=== PATIENT | male | born 1960 | race Caucasian/White ===

== ENCOUNTER 2021-10-04 18:23 | Emergency (ER) | payer SELFPAY ==
[2021-10-04] MEDS ORDERED: methylPREDNISolone Sod Succ/PF 125 MG/2 ML VIAL ONE (18:44)
[2021-10-04 19:05] LABS: #Basophils 0.2 thou/uL (0.0-0.2); #Eosinphils 1.3 thou/uL (0.0-0.7); #Lymphocytes 4.7 thou/uL (1.20-3.40); #Monocytes 1.1 thou/uL (0.11-0.59); #Neutrophils 8.9 thou/uL (1.40-6.50); %Basophils 1.2 % (0.0-1.0); %Eosinophils 7.9 % (0.0-10.0); %Lymphocytes 28.8 % (21.0-51.0); %Monocytes 6.8 % (0.0-10.0); %Neutrophils 55.3 % (42.0-75.0); Hemoglobin 18.7 g/dL (14.0-18.0); Mean Corpuscular HGB CONC 34.6 g/dL (32.0-36.0); Mean Corpuscular Hemoglobin 30.2 pg (27.0-31.0); Mean Corpuscular Volume 87.2 fL (78.0-98.0); Mean Platelet Volume 8.4 fL (7.4-10.4); Platelet Count 342 thou/uL (130-400); RBC Distribution Width 12.3 % (11.5-14.5); White Blood Cell (WBC) Count 16.1 thou/uL (4.8-10.8)
[2021-10-04 19:27] LABS: ALT (SGPT) 33 U/L (8-55); AST (SGOT) 26 U/L (5-34); Albumin 4.7 g/dL (3.4-4.8); Alkaline Phosphatase 72 U/L (40-110); Anion Gap 15 mmol/L (10-20); BUN (Urea Nitrogen) 14 mg/dL (8.4-25.7); Bilirubin, Total 0.4 mg/dL (0.2-1.2); Calc. Creatinine Clearance 0 mL/min (70-130); Calcium 10.7 mg/dL (7.8-10.44); Carbon Dioxide 27 mmol/L (23-31); Chloride 102 mmol/L (98-107); Glucose 148 mg/dL (80-115); Magnesium 2.2 mg/dL (1.6-2.6); Potassium 3.8 mmol/L (3.5-5.1); Protein, Total 8.7 g/dL (5.8-8.1); Sodium 140 mmol/L (136-145)
[2021-10-04 20:08] LABS: Actual Bicarbonate (HCO3v) 23 mEq/L (22-28); Analyzer IN Cardio ER; Base Excess -0.4 mEq/L (-2.0 to +3.0); Calcium, Ionized (venous) 1.11 mmol/L (1.16-1.32); Chloride (VBG) 103 mmol/L (98-106); Hemoglobin (Hb) 17.7 g/dL (13.1-17.2); Potassium (VBG) 3.91 mmol/L (3.70-5.30); Sodium 139.7 mmol/L (133-146); pH (venous) 7.45 (7.32-7.43)
[2021-10-04 21:29] LABS: SARS-CoV-2 NAA Rapid Test Not Detected (NotDetected)
== END 2021-10-05 01:14 | disposition home or self-care (01) ==
LOC: ERS 18:23
DX: J45.901 Unspecified asthma with (acute) exacerbation (principal); Z20.822 Contact with and (suspected) exposure to COVID-19; I10 Essential (primary) hypertension
CPT/HCPCS: 0240U; 36415; 71045; 80053; 82805; 83605; 83735; 83880; 84484; 85025; 93005; 94640; 96374; J2930; J7620

== ENCOUNTER 2021-11-10 09:27 | Inpatient (IN) | payer SELFPAY ==
[2021-11-10] MEDS ORDERED: methylPREDNISolone Sod Succ/PF 125 MG/2 ML VIAL ONE (09:43)
[2021-11-10] MEDS ORDERED: Magnesium 2 GM/50 ML BAG (IN WATER) ONE (09:43)
[2021-11-10 10:06] LABS: #Basophils 0.2 thou/uL (0.0-0.2); #Eosinphils 1.1 thou/uL (0.0-0.7); #Monocytes 0.7 thou/uL (0.11-0.59); #Neutrophils 7.4 thou/uL (1.40-6.50); %Basophils 1.5 % (0.0-1.0); %Eosinophils 9.8 % (0.0-10.0); %Lymphocytes 17.7 % (21.0-51.0); %Monocytes 5.9 % (0.0-10.0); %Neutrophils 65.2 % (42.0-75.0); Hemoglobin 17.3 g/dL (14.0-18.0); Mean Corpuscular HGB CONC 34.1 g/dL (32.0-36.0); Mean Corpuscular Hemoglobin 30.3 pg (27.0-31.0); Mean Corpuscular Volume 88.8 fL (78.0-98.0); Mean Platelet Volume 8.1 fL (7.4-10.4); Platelet Count 290 thou/uL (130-400); RBC Distribution Width 12.6 % (11.5-14.5); Red Blood Cell (RBC) Count 5.72 mill/uL (4.70-6.10); White Blood Cell (WBC) Count 11.3 thou/uL (4.8-10.8)
[2021-11-10] MEDS ORDERED: cefTRIAXone\\ROCEPHIN 2 GM VIAL ONE (10:08)
[2021-11-10] MEDS ORDERED: Azithromycin 500 MG VIAL ONE (10:08)
[2021-11-10] MEDS ORDERED: cefTRIAXone\\ROCEPHIN 1 GM VIAL ONE (10:08)
[2021-11-10 10:19] LABS: PTT 28.5 sec (22.9-36.1); Prothrombin Time 13.4 sec (12.0-14.7)
[2021-11-10 10:26] LABS: ALT (SGPT) 27 U/L (8-55); AST (SGOT) 29 U/L (5-34); Albumin 4.6 g/dL (3.4-4.8); Alkaline Phosphatase 67 U/L (40-110); Anion Gap 15 mmol/L (10-20); BUN (Urea Nitrogen) 15 mg/dL (8.4-25.7); Bilirubin, Total 0.6 mg/dL (0.2-1.2); Calc. Creatinine Clearance 0 mL/min (70-130); Calcium 9.7 mg/dL (7.8-10.44); Carbon Dioxide 22 mmol/L (23-31); Chloride 105 mmol/L (98-107); Globulin 3.2 g/dL (2.4-3.5); Glucose 215 mg/dL (80-115); Magnesium 1.9 mg/dL (1.6-2.6); Protein, Total 7.8 g/dL (5.8-8.1); Sodium 138 mmol/L (136-145)
[2021-11-10 10:27] LABS: Actual Bicarbonate (HCO3a) 21.5 mEq/L (22-28); Analyzer IN Cardio ER; Base Excess (BEa) -2.2 mEq/L (-2.0 to +3.0); CO2 Tension 34.2 mmHg (35.0-45.0); Calcium, Ionized (arterial) 1.19 mmol/L (1.12-1.30); Carboxyhemoglobin (COHb) 1.2 gm% (0.0-3.0); Hemoglobin (Hb) 16.6 g/dL (14.0-18.0); O2 Tension (PaO2), arterial 66.2 mmHg (> 80.0); pH, Arterial 7.42 (7.35-7.45)
[2021-11-10 10:30] LABS: Puncture Site RRA
[2021-11-10] MEDS ORDERED: Albuterol Sulfate 1.25 MG/3 ML NEB ONE (11:06)
[2021-11-10] MEDS ORDERED: Acetaminophen 325 MG TAB PO PRN (12:10)
[2021-11-10] MEDS ORDERED: Ondansetron ODT 4 MG TAB PO PRN (12:10)
[2021-11-10] MEDS ORDERED: Dextrose 50% Abboject 50 ML SYRINGE SLOW IVP PRN (12:13)
[2021-11-10] MEDS ORDERED: Dextrose 5% in Water 1,000 ML IV PRN (12:13)
[2021-11-10] MEDS ORDERED: Albuterol 200 PUFF (6.7GM INHALER) INH PRN (12:14)
[2021-11-10 13:18] LABS: SARS-CoV-2 PCR by NAA Not Detected (NotDetected)
[2021-11-10 17:46] VITALS: BMI 34.7
[2021-11-10] MEDS: methylPREDNISolone Sod Succ/PF 125 MG/2 ML VIAL IVP SCH ×2 (17:49→23:23)
[2021-11-10] MEDS: Famotidine 20 MG TAB PO SCH (20:07)
[2021-11-10] MEDS ORDERED: hydrALAZINE 20 MG/ML VIAL SLOW IVP PRN (20:48)
[2021-11-10 20:58] LABS: Lactic Acid 4.5 mmol/L (0.5-2.2)
[2021-11-10] MEDS ORDERED: Sodium Chloride 0.9% 500 ML IV SCH (21:15)
[2021-11-11] MEDS: HumaLOG 300 UNITS/3 ML VIAL SC PRN ×3 (04:12→16:59)
[2021-11-11] MEDS: methylPREDNISolone Sod Succ/PF 125 MG/2 ML VIAL IVP SCH ×4 (05:17→23:47)
[2021-11-11 08:04] LABS: #Lymphocytes 0.8 thou/uL (1.20-3.40); #Monocytes 0.2 thou/uL (0.11-0.59); #Neutrophils 15.8 thou/uL (1.40-6.50); %Basophils 0.2 % (0.0-1.0); %Eosinophils 0.1 % (0.0-10.0); %Lymphocytes 4.9 % (21.0-51.0); %Monocytes 1.2 % (0.0-10.0); %Neutrophils 93.7 % (42.0-75.0); Hemoglobin 15.2 g/dL (14.0-18.0); Mean Corpuscular HGB CONC 32.1 g/dL (32.0-36.0); Mean Corpuscular Hemoglobin 28.6 pg (27.0-31.0); Mean Corpuscular Volume 89.2 fL (78.0-98.0); Mean Platelet Volume 8.4 fL (7.4-10.4); Platelet Count 290 thou/uL (130-400); RBC Distribution Width 12.5 % (11.5-14.5); Red Blood Cell (RBC) Count 5.31 mill/uL (4.70-6.10); White Blood Cell (WBC) Count 16.9 thou/uL (4.8-10.8)
[2021-11-11 08:16] LABS: Anion Gap 14 mmol/L (10-20); BUN (Urea Nitrogen) 14 mg/dL (8.4-25.7); Calc. Creatinine Clearance 110 mL/min (70-130); Calcium 9.3 mg/dL (7.8-10.44); Carbon Dioxide 20 mmol/L (23-31); Chloride 107 mmol/L (98-107); Glucose 196 mg/dL (80-115); Sodium 137 mmol/L (136-145)
[2021-11-11] MEDS: guaiFENesin 200 MG TAB PO PRN ×2 (08:36→20:25)
[2021-11-11] MEDS: Famotidine 20 MG TAB PO SCH ×2 (08:36→20:20)
[2021-11-12] MEDS: methylPREDNISolone Sod Succ/PF 125 MG/2 ML VIAL IVP SCH ×2 (05:02→12:47)
[2021-11-12] MEDS: HumaLOG 300 UNITS/3 ML VIAL SC PRN ×3 (05:43→16:53)
[2021-11-12] MEDS: Famotidine 20 MG TAB PO SCH ×2 (08:09→19:55)
[2021-11-13] MEDS: HumaLOG 300 UNITS/3 ML VIAL SC PRN ×2 (04:21→12:46)
[2021-11-13] MEDS ORDERED: FLU VACC QS2021-22(6MOS UP)/PF 60 MCG/0.5 ML SYRINGE IM ONE (09:00)
[2021-11-13] MEDS ORDERED: methylPREDNISolone Sod Succ 40 MG VIAL IVP SCH (09:00)
[2021-11-13] MEDS: Famotidine 20 MG TAB PO SCH (09:48)
[2021-11-13 11:12] VITALS: BP 167/87
[2021-11-13 15:16] VITALS: TEMP 98.1
== END 2021-11-13 14:35 | disposition home or self-care (01) | DRG 189 ==
LOC: ERS 09:27 → T4-B 10:51 → OBSVTOIN 11-11 13:18
PROVIDERS: ADMIT Internal Medicine; ATTEND Internal Medicine
DX: J96.01 Acute respiratory failure with hypoxia (principal); J45.901 Unspecified asthma with (acute) exacerbation; E87.2 Acidosis; I10 Essential (primary) hypertension; E11.65 Type 2 diabetes mellitus with hyperglycemia; Z20.822 Contact with and (suspected) exposure to COVID-19; Z79.899 Other long term (current) drug therapy; Z90.49 Acquired absence of other specified parts of digestive tract
CPT/HCPCS: 36415; 36416; 36600; 71045; 80048; 80053; 82805; 83605; 83735; 83880; 84484; 85025; 85610; 85730; 87040; 90471; 90686; 90732; 93005; 94640; 94644; 94760; 96376; G0008; G0009; G0378; J0456; J0696; J1815; J1956; J2920; J2930; J3475; J7030; J7620; U0003; U0005

== ENCOUNTER 2022-05-10 10:33 | Emergency (ER) | payer OTHER, SELFPAY ==
[2022-05-10] MEDS ORDERED: methylPREDNISolone Sod Succ/PF 125 MG/2 ML VIAL ONE (10:59)
[2022-05-10 11:12] LABS: #Basophils 0.1 thou/uL (0.0-0.2); #Eosinphils 1.6 thou/uL (0.0-0.7); #Lymphocytes 2.7 thou/uL (1.20-3.40); #Monocytes 1.1 thou/uL (0.11-0.59); #Neutrophils 8.7 thou/uL (1.40-6.50); %Basophils 0.7 % (0.0-1.0); %Eosinophils 11.5 % (0.0-10.0); %Lymphocytes 19.1 % (21.0-51.0); %Neutrophils 60.7 % (42.0-75.0); Hemoglobin 16.9 g/dL (14.0-18.0); Mean Corpuscular HGB CONC 32.9 g/dL (32.0-36.0); Mean Corpuscular Hemoglobin 29.7 pg (27.0-31.0); Mean Corpuscular Volume 90.2 fL (78.0-98.0); Mean Platelet Volume 8.5 fL (7.4-10.4); Platelet Count 347 thou/uL (130-400); RBC Distribution Width 12.7 % (11.5-14.5); Red Blood Cell (RBC) Count 5.69 mill/uL (4.70-6.10); White Blood Cell (WBC) Count 14.3 thou/uL (4.8-10.8)
[2022-05-10 11:27] LABS: ALT (SGPT) 22 U/L (8-55); AST (SGOT) 20 U/L (5-34); Albumin 4.8 g/dL (3.4-4.8); Alkaline Phosphatase 66 U/L (40-110); Anion Gap 16 mmol/L (10-20); BUN (Urea Nitrogen) 13 mg/dL (8.4-25.7); Bilirubin, Total 0.7 mg/dL (0.2-1.2); Calc. Creatinine Clearance 0 mL/min (70-130); Calcium 9.9 mg/dL (7.8-10.44); Carbon Dioxide 26 mmol/L (23-31); Chloride 103 mmol/L (98-107); Estimated GFR 65; Globulin 3.1 g/dL (2.4-3.5); Glucose 197 mg/dL (80-115); Potassium 4.2 mmol/L (3.5-5.1); Protein, Total 7.9 g/dL (5.8-8.1); Sodium 141 mmol/L (136-145)
== END 2022-05-10 14:57 | disposition home or self-care (01) ==
LOC: ERS 10:33
DX: J45.901 Unspecified asthma with (acute) exacerbation (principal); I10 Essential (primary) hypertension; E11.9 Type 2 diabetes mellitus without complications; E78.5 Hyperlipidemia, unspecified; E78.00 Pure hypercholesterolemia, unspecified; Z79.82 Long term (current) use of aspirin; Z79.84 Long term (current) use of oral hypoglycemic drugs; Z79.899 Other long term (current) drug therapy
CPT/HCPCS: 71045; 80053; 83605; 84484; 85025; 87040; 93005; 94640; 94760; 96361; 96374; J2930; J7620

== ENCOUNTER 2022-05-19 09:07 | Emergency (ER) | payer SELFPAY ==
[2022-05-19 09:35] LABS: #Basophils 0.2 thou/uL (0.0-0.2); #Eosinphils 1.9 thou/uL (0.0-0.7); #Lymphocytes 3.3 thou/uL (1.20-3.40); #Monocytes 1.5 thou/uL (0.11-0.59); #Neutrophils 9.5 thou/uL (1.40-6.50); %Basophils 0.9 % (0.0-1.0); %Eosinophils 11.5 % (0.0-10.0); %Lymphocytes 19.9 % (21.0-51.0); %Monocytes 9.4 % (0.0-10.0); %Neutrophils 58.2 % (42.0-75.0); Hemoglobin 17.1 g/dL (14.0-18.0); Mean Corpuscular HGB CONC 32.7 g/dL (32.0-36.0); Mean Corpuscular Hemoglobin 29.3 pg (27.0-31.0); Mean Corpuscular Volume 89.5 fL (78.0-98.0); Mean Platelet Volume 8.4 fL (7.4-10.4); Platelet Count 278 thou/uL (130-400); RBC Distribution Width 12.4 % (11.5-14.5); Red Blood Cell (RBC) Count 5.83 mill/uL (4.70-6.10); White Blood Cell (WBC) Count 16.4 thou/uL (4.8-10.8)
[2022-05-19] MEDS ORDERED: Magnesium 2 GM/50 ML BAG (IN WATER) ONE (09:50)
[2022-05-19] MEDS ORDERED: methylPREDNISolone Sod Succ/PF 125 MG/2 ML VIAL ONE (09:50)
[2022-05-19 09:53] LABS: ALT (SGPT) 25 U/L (8-55); AST (SGOT) 18 U/L (5-34); Albumin 4.7 g/dL (3.4-4.8); Alkaline Phosphatase 62 U/L (40-110); Anion Gap 16 mmol/L (10-20); BUN (Urea Nitrogen) 17 mg/dL (8.4-25.7); Bilirubin, Total 0.6 mg/dL (0.2-1.2); Calc. Creatinine Clearance 0 mL/min (70-130); Carbon Dioxide 25 mmol/L (23-31); Chloride 100 mmol/L (98-107); Estimated GFR 63; Globulin 3.2 g/dL (2.4-3.5); Glucose 176 mg/dL (80-115); Lipase 44 U/L (8-78); Potassium 3.7 mmol/L (3.5-5.1); Protein, Total 7.9 g/dL (5.8-8.1); Sodium 137 mmol/L (136-145)
[2022-05-19 12:10] LABS: SARS-CoV-2 NAA Rapid Test DETECTED (NotDetected)
== END 2022-05-19 11:47 | disposition home or self-care (01) ==
LOC: ERS 09:07
DX: U07.1 COVID-19 (principal); J44.1 Chronic obstructive pulmonary disease with (acute) exacerbation; E11.9 Type 2 diabetes mellitus without complications; E78.5 Hyperlipidemia, unspecified; I10 Essential (primary) hypertension; Z79.82 Long term (current) use of aspirin; Z79.899 Other long term (current) drug therapy; Z79.84 Long term (current) use of oral hypoglycemic drugs
CPT/HCPCS: 71045; 80053; 83690; 84484; 85025; 93005; 94760; 96374; 96375; J2930; J3475; J7620

== ENCOUNTER 2022-12-22 09:04 | Emergency (ER) | payer SELFPAY ==
[2022-12-22] MEDS ORDERED: methylPREDNISolone Sod Succ/PF 125 MG/2 ML VIAL ONE (09:21)
[2022-12-22] MEDS ORDERED: Albuterol 2.5 MG/0.5 ML NEB ONE ×4 (09:29→09:30)
[2022-12-22 09:40] LABS: #Basophils 0.1 thou/uL (0.0-0.2); #Monocytes 1.3 thou/uL (0.11-0.59); #Neutrophils 11.5 thou/uL (1.40-6.50); %Basophils 0.8 % (0.0-1.0); %Eosinophils 15.8 % (0.0-10.0); %Monocytes 6.7 % (0.0-10.0); %Neutrophils 60.8 % (42.0-75.0); Hemoglobin 17.5 g/dL (14.0-18.0); Mean Corpuscular HGB CONC 31.4 g/dL (32.0-36.0); Mean Corpuscular Volume 89.1 fl (78.0-98.0); Mean Platelet Volume 8.7 fL (7.4-10.4); Platelet Count 342 10x3/uL (130-400); RBC Distribution Width 13.3 % (11.5-14.5); Red Blood Cell (RBC) Count 6.25 mill/uL (4.70-6.10); White Blood Cell (WBC) Count 18.9 10x3/uL (4.8-10.8)
[2022-12-22 10:06] LABS: ALT (SGPT) 29 U/L (8-55); AST (SGOT) 22 U/L (5-34); Albumin 4.8 g/dL (3.4-4.8); Alkaline Phosphatase 92 U/L (40-110); Anion Gap 20 mmol/L (10-20); BUN (Urea Nitrogen) 18 mg/dL (8.4-25.7); Bilirubin, Total 0.6 mg/dL (0.2-1.2); Calc. Creatinine Clearance 0 mL/min (70-130); Calcium 9.8 mg/dL (7.8-10.44); Carbon Dioxide 16 mmol/L (23-31); Chloride 106 mmol/L (98-107); Estimated GFR 44; Globulin 2.9 g/dL (2.4-3.5); Glucose 250 mg/dL (80-115); Potassium 4.2 mmol/L (3.5-5.1); Protein, Total 7.7 g/dL (5.8-8.1); Sodium 138 mmol/L (136-145)
[2022-12-22] MEDS ORDERED: Ondansetron PF 4 MG/2 ML Vial ONE (12:57)
== END 2022-12-22 16:31 | disposition home or self-care (01) ==
LOC: ERS 09:04
DX: J45.901 Unspecified asthma with (acute) exacerbation (principal); E11.9 Type 2 diabetes mellitus without complications; E78.00 Pure hypercholesterolemia, unspecified; I10 Essential (primary) hypertension; Z79.82 Long term (current) use of aspirin; Z79.84 Long term (current) use of oral hypoglycemic drugs; Z79.899 Other long term (current) drug therapy
CPT/HCPCS: 71045; 80053; 83880; 84484; 85025; 93005; 94640; 96374; J2405; J2930; J7611

== ENCOUNTER 2023-01-15 17:08 | Inpatient (IN) | payer SELFPAY ==
[2023-01-15] MEDS ORDERED: Albuterol 2.5 MG/0.5 ML NEB ONE (17:13)
[2023-01-15] MEDS ORDERED: Ipratropium Bromide 2.5 ml Neb ONE (17:20)
[2023-01-15 18:10] LABS: ALT (SGPT) 27 U/L (8-55); AST (SGOT) 23 U/L (5-34); Albumin 4.7 g/dL (3.4-4.8); Alkaline Phosphatase 78 U/L (40-110); Anion Gap 22 mmol/L (10-20); BUN (Urea Nitrogen) 12 mg/dL (8.4-25.7); Bilirubin, Total 0.8 mg/dL (0.2-1.2); Calc. Creatinine Clearance 0 mL/min (70-130); Calcium 9.9 mg/dL (7.8-10.44); Carbon Dioxide 15 mmol/L (23-31); Chloride 107 mmol/L (98-107); Estimated GFR 61; Globulin 3.3 g/dL (2.4-3.5); Glucose 186 mg/dL (80-115); Potassium 4.1 mmol/L (3.5-5.1); Sodium 140 mmol/L (136-145)
[2023-01-15 18:37] LABS: #Basophils 0.1 thou/uL (0.0-0.2); #Eosinphils 2.2 thou/uL (0.0-0.7); #Lymphocytes 3.3 thou/uL (1.20-3.40); #Monocytes 1.3 thou/uL (0.11-0.59); %Eosinophils 16.8 % (0.0-10.0); %Lymphocytes 25.4 % (21.0-51.0); %Monocytes 9.8 % (0.0-10.0); %Neutrophils 46.9 % (42.0-75.0); Hemoglobin 17.5 g/dL (14.0-18.0); Mean Corpuscular HGB CONC 33.3 g/dL (32.0-36.0); Mean Corpuscular Hemoglobin 30.3 pg (27.0-31.0); Mean Platelet Volume 10.2 fL (7.4-10.4); Platelet Count 154 10x3/uL (130-400); RBC Distribution Width 13.1 % (11.5-14.5); Red Blood Cell (RBC) Count 5.75 mill/uL (4.70-6.10); White Blood Cell (WBC) Count 12.8 10x3/uL (4.8-10.8)
[2023-01-15 18:46] LABS: SARS-CoV-2 NAA Rapid Test Not Detected (NotDetected)
[2023-01-15] MEDS ORDERED: Ipratropium/Albuterol 3 ML NEB ONE (20:21)
[2023-01-15] MEDS ORDERED: Ondansetron ODT 4 MG TAB PO PRN (21:00)
[2023-01-15] MEDS ORDERED: Lisinopril 10 MG TAB PO SCH (21:00)
[2023-01-15] MEDS ORDERED: Acetaminophen 325 MG TAB PO PRN (21:00)
[2023-01-15] MEDS ORDERED: Senokot S 8.6-50 MG TAB PO PRN (21:00)
[2023-01-15] MEDS ORDERED: Calcium Carbonate 500 MG ChewTAB PO PRN (21:00)
[2023-01-15 22:20] LABS: Base Excess -11.7 mEq/L (-2.0 to +3.0); Calcium, Ionized (venous) 1.08 mmol/L (1.16-1.32); Chloride (VBG) 103 mmol/L (98-106); Hemoglobin (Hb) 17.7 g/dL (13.1-17.2); Potassium (VBG) 3.81 mmol/L (3.70-5.30); Sodium 137.5 mmol/L (133-146); pH (venous) 7.32 (7.32-7.43)
[2023-01-15 22:31] LABS: Actual Bicarbonate (HCO3v) 12 mEq/L (22-28)
[2023-01-15 22:58] LABS: Lactic Acid 4.9 mmol/L (0.5-2.2)
[2023-01-16 00:02] VITALS: BMI 30.1
[2023-01-16] MEDS: Famotidine 20 MG TAB PO SCH ×3 (00:09→20:26)
[2023-01-16] MEDS ORDERED: Ipratropium/Albuterol 3 ML NEB NEB SCH (01:00)
[2023-01-16] MEDS ORDERED: Electrolyte Replacement Protocol 1 EACH FS SCH (01:00)
[2023-01-16] MEDS: Ipratropium/Albuterol 3 ML NEB IPPB SCH ×6 (01:15→23:42)
[2023-01-16] MEDS: Lactated Ringer's 1,000 ML IV SCH ×2 (01:20→11:24)
[2023-01-16 04:46] LABS: Actual Bicarbonate (HCO3v) 16 mEq/L (22-28); Base Excess -7.1 mEq/L (-2.0 to +3.0); Calcium, Ionized (venous) 1.12 mmol/L (1.16-1.32); Chloride (VBG) 105 mmol/L (98-106); Hemoglobin (Hb) 16.4 g/dL (13.1-17.2); Potassium (VBG) 4.15 mmol/L (3.70-5.30); Sodium 135.9 mmol/L (133-146); pH (venous) 7.38 (7.32-7.43)
[2023-01-16 04:48] LABS: #Lymphocytes 0.7 thou/uL (1.20-3.40); #Monocytes 0.1 thou/uL (0.11-0.59); #Neutrophils 7.8 thou/uL (1.40-6.50); %Basophils 0.1 % (0.0-1.0); %Eosinophils 0.3 % (0.0-10.0); %Lymphocytes 8.5 % (21.0-51.0); %Monocytes 1.2 % (0.0-10.0); Hemoglobin 15.7 g/dL (14.0-18.0); Mean Corpuscular Hemoglobin 29.8 pg (27.0-31.0); Mean Corpuscular Volume 90.2 fl (78.0-98.0); Mean Platelet Volume 8.4 fL (7.4-10.4); Platelet Count 337 10x3/uL (130-400); RBC Distribution Width 12.8 % (11.5-14.5); Red Blood Cell (RBC) Count 5.27 mill/uL (4.70-6.10); White Blood Cell (WBC) Count 8.7 10x3/uL (4.8-10.8)
[2023-01-16 05:00] LABS: Lactic Acid 2.7 mmol/L (0.5-2.2)
[2023-01-16 05:05] LABS: Anion Gap 18 mmol/L (10-20); BUN (Urea Nitrogen) 14 mg/dL (8.4-25.7); Calc. Creatinine Clearance 77 mL/min (70-130); Calcium 9.3 mg/dL (7.8-10.44); Carbon Dioxide 16 mmol/L (23-31); Cardiac Risk 5.7 (Less than 4.5); Chloride 106 mmol/L (98-107); Cholesterol 187 mg/dl (< 200 Desired); Estimated GFR 63; Glucose 288 mg/dL (80-115); HDL Cholesterol 33 mg/dL (>60 Neg Risk); LDL Cholesterol, Calculated 140 mg/dL; Potassium 4.1 mmol/L (3.5-5.1); Sodium 136 mmol/L (136-145); Triglycerides 71 mg/dL (Less than 150)
[2023-01-16] MEDS: Albuterol 200 PUFF (6.7GM INHALER) INH SCH ×4 (05:48→23:43)
[2023-01-16] MEDS ORDERED: Dexamethasone 10 MG/ML VIAL SLOW IVP SCH (09:00)
[2023-01-16] MEDS: Lisinopril 20 MG TAB PO SCH ×2 (09:42→20:26)
[2023-01-16] MEDS: metFORMIN 500 MG TAB PO SCH ×2 (09:42→18:20)
[2023-01-16] MEDS: predniSONE 20 MG TAB PO SCH (09:42)
[2023-01-16] MEDS: Aspirin 81 mg Enteric Coated Tablet PO SCH (09:42)
[2023-01-16] MEDS ORDERED: Cepastat Lozenges 1 LOZ PO PRN (10:45)
[2023-01-16] MEDS: guaiFENesin/Codeine 200 mg/20 mg 10 ml Cup PO PRN ×2 (11:37→20:27)
[2023-01-16] MEDS ORDERED: Atorvastatin Calcium 20 MG TAB PO SCH (21:00)
[2023-01-17] MEDS: Ipratropium/Albuterol 3 ML NEB IPPB SCH ×2 (02:02→06:53)
[2023-01-17] MEDS: Albuterol 200 PUFF (6.7GM INHALER) INH SCH (06:54)
[2023-01-17] MEDS ORDERED: Albuterol 200 PUFF (6.7GM INHALER) INH PRN (07:41)
[2023-01-17] MEDS: predniSONE 20 MG TAB PO SCH (07:51)
[2023-01-17] MEDS: Famotidine 20 MG TAB PO SCH (07:51)
[2023-01-17] MEDS: Lisinopril 20 MG TAB PO SCH (07:51)
[2023-01-17] MEDS: Aspirin 81 mg Enteric Coated Tablet PO SCH (07:51)
[2023-01-17] MEDS: metFORMIN 500 MG TAB PO SCH ×2 (07:51→16:08)
[2023-01-17] MEDS ORDERED: Ipratropium/Albuterol 3 ML NEB IPPB SCH (13:00)
[2023-01-17 16:22] VITALS: BP 157/85; TEMP 97.7
== END 2023-01-17 16:55 | disposition home or self-care (01) | DRG 189 ==
LOC: ERS 17:08 → IMCU/EMU 21:00 → OBSVTOIN 01-16 → T4-A 01-16 19:38
PROVIDERS: ADMIT Emergency Medicine; ATTEND Emergency Medicine
PROC: 5A09357 Assistance with Respiratory Ventilation, Less than 24 Consecutive Hours, Continuous Positive Airway Pressure (ICD-10-PCS; principal; 2023-01-16)
DX: J96.01 Acute respiratory failure with hypoxia (principal); J45.901 Unspecified asthma with (acute) exacerbation; E87.20 Acidosis, unspecified; N17.9 Acute kidney failure, unspecified; Z20.822 Contact with and (suspected) exposure to COVID-19; D72.829 Elevated white blood cell count, unspecified; I12.9 Hypertensive chronic kidney disease with stage 1 through stage 4 chronic kidney disease, or unspecified chronic kidney disease; E86.0 Dehydration; E11.22 Type 2 diabetes mellitus with diabetic chronic kidney disease; E11.65 Type 2 diabetes mellitus with hyperglycemia; Z98.890 Other specified postprocedural states; Z79.899 Other long term (current) drug therapy; Z79.51 Long term (current) use of inhaled steroids; Z79.84 Long term (current) use of oral hypoglycemic drugs; Z90.49 Acquired absence of other specified parts of digestive tract
CPT/HCPCS: 36415; 71045; 80048; 80053; 80061; 82805; 83036; 83605; 83880; 84145; 84484; 85025; 87040; 93005; 94640; G0378; J1650; J7120; J7512; J7611; J7620

== ENCOUNTER 2023-04-29 19:47 | Emergency (ER) | payer SELFPAY ==
[2023-04-29] MEDS ORDERED: Lidocaine 1% PF 5 ML VIAL ONE (21:14)
[2023-04-29] MEDS ORDERED: Bupivacaine 0.25% 10 ML VIAL ONE (21:16)
== END 2023-04-29 22:16 | disposition home or self-care (01) ==
LOC: ERS 19:47
DX: S61.211A Laceration without foreign body of left index finger without damage to nail, initial encounter (principal); E11.9 Type 2 diabetes mellitus without complications; E78.00 Pure hypercholesterolemia, unspecified; I10 Essential (primary) hypertension; W31.2XXA Contact with powered woodworking and forming machines, initial encounter; Z79.82 Long term (current) use of aspirin; Z79.899 Other long term (current) drug therapy; Z79.84 Long term (current) use of oral hypoglycemic drugs
CPT/HCPCS: 12002; S0020

== ENCOUNTER 2023-05-09 10:52 | Emergency (ER) | payer SELFPAY | END 2023-05-09 12:33 | disposition home or self-care (01) | LOC: ERS 10:52 | DX: Z48.02 Encounter for removal of sutures (principal); E11.9 Type 2 diabetes mellitus without complications; I10 Essential (primary) hypertension ==